=== PATIENT | female | born 1930 | race Caucasian/White ===

== ENCOUNTER → 2016-05-28 | Outpatient (CLI) | payer MEDICARE, OTHER ==
[2016-05-28 15:22] LABS: ABSOLUTE EOSINOPHILS # (AUTO) 0.1 10^3/uL (0.0-0.6); ABSOLUTE LYMPHOCYTES (AUTO) 1.3 10^3/uL (0.5-4.7); ABSOLUTE MONOCYTES (AUTO) 0.7 10^3/uL (0.1-1.4); ABSOLUTE NEUT (AUTO) 4.6 10^3/uL (1.7-8.2); BASOPHILS % (AUTO) 0.7 % (0-2); EOSINOPHILS % (AUTO) 0.8 % (0-6); HEMOGLOBIN 9.6 g/dL (12.0-15.5); HGB HCT DIFFERENCE -0.2; MEAN CORPUSCULAR HGB CONC 33.2 g/dL (32.0-36.0); MEAN CORPUSCULAR VOLUME 87 fl (80-97); MONOCYTES % (AUTO) 9.8 % (3-13); RED BLOOD COUNT 3.32 10^6/uL (3.72-5.28); RED CELL DISTRIBUTION WIDTH 14.9 % (11.5-14.0); SEGMENTED NEUTROPHILS % (AUTO) 68.7 % (42-78); WHITE BLOOD COUNT 6.7 10^3/uL (4.0-10.5)
[2016-05-28 15:43] LABS: ANION GAP 10 (5-19); BLOOD UREA NITROGEN 12 mg/dL (7-20); CALCIUM 9.2 mg/dL (8.4-10.2); CARBON DIOXIDE 27 mmol/L (22-30); CHLORIDE 103 mmol/L (98-107); CREATININE RESULT 0.64 mg/dL (0.52-1.25); GLUCOSE 93 mg/dL (75-110); IRON 21.4 ug/dL (37-170); POTASSIUM 4.7 mmol/L (3.6-5.0); SODIUM 140.4 mmol/L (137-145)
== END ==
LOC: OD 14:35
PROVIDERS: ATTEND Specialist
DX: R10.9 Unspecified abdominal pain (principal); D50.9 Iron deficiency anemia, unspecified
CPT/HCPCS: 36415; 80048; 82607; 82728; 83540; 85025

== ENCOUNTER 2016-06-03 08:21 | Day surgery (SDC) | payer MEDICARE, OTHER ==
[~2016-06-03 08:21] MED LIST: EPINEPHRINE INJ 1 MG/10 ML DISP.SYRIN ONE; FLUMAZENIL INJ 0.5 MG/5 ML VIAL IV ONE; GLYCOPYRROLATE INJ 0.4 MG/2 ML VIAL ONE; NALOXONE HCL INJ/PF 0.4 MG/1 ML SDV ONE; ONDANSETRON HCL INJ/PF 4 MG/2 ML SDV ONE; PROMETHAZINE HCL INJ 25 MG/1 ML VIAL ONE
[2016-06-03] MEDS: MIDAZOLAM 2 MG/2 ML INJ ONE ×2 (09:03→09:07)
[2016-06-03] MEDS: FENTANYL CITRATE INJ/PF 100 MCG/2 ML AMPUL ONE ×2 (09:05→09:09)
[2016-06-03 10:17] LABS: ABSOLUTE MONOCYTES (AUTO) 0.4 10^3/uL (0.1-1.4); ABSOLUTE NEUT (AUTO) 3.5 10^3/uL (1.7-8.2); BASOPHILS % (AUTO) 0.7 % (0-2); EOSINOPHILS % (AUTO) 0.9 % (0-6); HEMATOCRIT 26.3 % (36.0-47.0); HEMOGLOBIN 8.7 g/dL (12.0-15.5); HGB HCT DIFFERENCE -0.2; LYMPHOCYTES % (AUTO) 20.3 % (13-45); MEAN CORPUSCULAR HEMOGLOBIN 28.4 pg (27.0-33.4); MEAN CORPUSCULAR HGB CONC 33.2 g/dL (32.0-36.0); MEAN CORPUSCULAR VOLUME 86 fl (80-97); RED BLOOD COUNT 3.07 10^6/uL (3.72-5.28); RED CELL DISTRIBUTION WIDTH 15.3 % (11.5-14.0); SEGMENTED NEUTROPHILS % (AUTO) 70.1 % (42-78)
[2016-06-03 10:33] VITALS: BP 97/56
--- NOTE | 2016-06-03 10:49 | DISCHARGE SUMMARY E ---
Discharge Summary NAME: KATIE CLEMENTS : 1930 AGE: 85Y ADMITTED: 06/03/2016 DISCHARGED: 06/03/2016 PROCEDURE: EGD, biopsy. HISTORY: The patient is 85, presented with weight loss, abnormal upper GI. Today's upper scope shows gastric ulcer, benign looking, biopsy obtained. DISCHARGE PLAN: Continue Prevacid, soft diet. Awaiting CEA, CBC. Consider followup endoscopy after 4-6 weeks to see if the ulcer healed. DICTATING PHYSICIAN: BARRY LEWIS M.D. [id number] PHY#: [id number] ID: [id number] JOB#: [id number] ACCT: [id number] cc:BARRY LEWIS M.D., ROBERT M.D. >
--- NOTE | 2016-06-03 10:50 | OPERATIVE REPORT E ---
Operative Report NAME: KATIE CLEMENTS : 1930 AGE: 85Y DATE OF SURGERY: 06/03/2016 ROOM: PREOPERATIVE DIAGNOSIS: Gastric ulcer. POSTOPERATIVE DIAGNOSIS: A 1 cm gastric ulcer. PROCEDURES: 1. Esophagoscopy. 2. Gastroscopy. 3. Duodenoscopy. SURGEON: BARRY LEWIS M.D. ANESTHESIA: Versed 4, fentanyl 50. TISSUE REMOVED OR ALTERED: Gastric biopsy. PROCEDURE: After adequate sedation, baby scope passed under guided vision. No difficulties. Esophagoscopy: Junction at 58 cm, mild esophagitis. Gastroscopy: Well-demarcated gastric ulcer 1 cm in size, benign looking to me. Biopsy from surrounding the ulcer was obtained. The ulcer is deep and I was reluctant to biopsy the crater of the ulcer because of the risk of bleeding and perforation. Biopsy of the periphery of the ulcer looks benign. Duodenoscopy: Duodenal bulbs benign, 2-3 mm in size. CONCLUSION: Gastric ulcer, benign looking, awaiting biopsies. PLAN: 1. Continue Prevacid 2. Hold nonsteroidal. 3. Repeat upper endoscopy in 4-6 weeks to make sure the ulcer is healed. 4. Awaiting biopsy. 5. Awaiting CEA. DICTATING PHYSICIAN: BARRY LEWIS M.D. [id number] Y#: [id number] ID: [id number] JOB#: [id number] ACCT: [id number] cc:BARRY LEWIS M.D., ROBERT M.D. >
== END 2016-06-03 10:30 | disposition home or self-care (01) ==
LOC: END 08:21
PROVIDERS: ATTEND Specialist
PROC: 0DB68ZX Excision of Stomach, Via Natural or Artificial Opening Endoscopic, Diagnostic (ICD-10-PCS; principal; 2016-06-03 09:00)
DX: K25.9 Gastric ulcer, unspecified as acute or chronic, without hemorrhage or perforation (principal); K29.50 Unspecified chronic gastritis without bleeding; B96.81 Helicobacter pylori [H. pylori] as the cause of diseases classified elsewhere; R63.4 Abnormal weight loss; R97.0 Elevated carcinoembryonic antigen [CEA]; Z88.0 Allergy status to penicillin
CPT/HCPCS: 43239; 36415; 82378; 85025; 88342 ×2; 88305 ×2; J2250; J3010; J2405; J0171; J2310; J2550; J3490

== ENCOUNTER 2016-11-24 09:33 | Day surgery (SDC) | payer MEDICARE, OTHER ==
[~2016-11-24 09:33] MED LIST changes: -FLUMAZENIL INJ 0.5 MG/5 ML VIAL IV ONE; +FLUMAZENIL INJ 0.5 MG/5 ML VIAL ONE; +MIDAZOLAM 2 MG/2 ML INJ ONE; -PROMETHAZINE HCL INJ 25 MG/1 ML VIAL ONE
[2016-11-24] MEDS: FENTANYL CITRATE INJ/PF 100 MCG/2 ML AMPUL ONE ×2 (09:51→09:53)
[2016-11-24 11:08] VITALS: BP 115/60
[2016-11-24 11:24] LABS: ABSOLUTE LYMPHOCYTES (AUTO) 0.9 10^3/uL (0.5-4.7); ABSOLUTE MONOCYTES (AUTO) 0.5 10^3/uL (0.1-1.4); ABSOLUTE NEUT (AUTO) 4.3 10^3/uL (1.7-8.2); BASOPHILS % (AUTO) 0.4 % (0-2); EOSINOPHILS % (AUTO) 0.6 % (0-6); HEMATOCRIT 31.7 % (36.0-47.0); HEMOGLOBIN 10.3 g/dL (12.0-15.5); HGB HCT DIFFERENCE -0.8; LYMPHOCYTES % (AUTO) 16.4 % (13-45); MEAN CORPUSCULAR HEMOGLOBIN 23.2 pg (27.0-33.4); MEAN CORPUSCULAR HGB CONC 32.3 g/dL (32.0-36.0); MEAN CORPUSCULAR VOLUME 72 fl (80-97); MONOCYTES % (AUTO) 8.2 % (3-13); RED BLOOD COUNT 4.42 10^6/uL (3.72-5.28); RED CELL DISTRIBUTION WIDTH 21.2 % (11.5-14.0); SEGMENTED NEUTROPHILS % (AUTO) 74.4 % (42-78); WHITE BLOOD COUNT 5.7 10^3/uL (4.0-10.5)
[2016-11-24 11:45] LABS: ALANINE AMINOTRANSFERASE 34 U/L (9-52); ALBUMIN 3.8 g/dL (3.5-5.0); ALKALINE PHOSPHATASE 47 U/L (38-126); ANION GAP 7 (5-19); ASPARTATE AMINO TRANSFERASE 34 U/L (14-36); BILIRUBIN,DIRECT 0.2 mg/dL (0.0-0.4); BILIRUBIN,TOTAL 0.3 mg/dL (0.2-1.3); BLOOD UREA NITROGEN 11 mg/dL (7-20); CALCIUM 9.1 mg/dL (8.4-10.2); CARBON DIOXIDE 26 mmol/L (22-30); CHLORIDE 104 mmol/L (98-107); CREATININE RESULT 0.62 mg/dL (0.52-1.25); GLUCOSE 143 mg/dL (75-110); POTASSIUM 4.3 mmol/L (3.6-5.0); SODIUM 136.9 mmol/L (137-145)
[2016-11-24 12:15] LABS: CARCINOEMBRYONIC ANTIGEN 5.7 ng/mL (<3.0)
--- NOTE | 2016-11-24 14:44 | DISCHARGE SUMMARY E ---
Discharge Summary NAME: KATIE CLEMENTS : 1930 AGE: 86Y ADMITTED: 11/24/2016 DISCHARGED: 11/24/2016 HOSPITAL COURSE: The patient is an 86-year-old female with gastric ulcer. Upper endoscopy today shows persistent gastric ulcer. Biopsy obtained and lory esophagitis and benign-looking duodenal small polyps with mild duodenitis. DISCHARGE PLAN: Baseline CBC, CEA, chem profile. Hold aspirin, nonsteroidal. Continue PPI. Consider followup endoscopy 3 months pending biopsy results. DICTATING PHYSICIAN: BARRY LEWIS M.D. [id number] PHY#: [id number] ID: [id number] JOB#: [id number] ACCT: [id number] cc:BARRY LEWIS M.D., ROBERT M.D. >
--- NOTE | 2016-11-24 14:45 | OPERATIVE REPORT E ---
Operative Report NAME: KATIE CLEMENTS : 1930 AGE: 86Y DATE OF SURGERY: 11/24/2016 ROOM: PREOPERATIVE DIAGNOSIS: Gastric ulcer. POSTOPERATIVE DIAGNOSIS: Question lory esophagitis, benign duodenal bulb and duodenitis, persistent gastric ulcer in the antrum. OPERATION: Esophagoscopy, gastroscopy, duodenoscopy. SURGEON: BARRY LEWIS M.D. ANESTHESIA: Versed 2, fentanyl 50. TISSUE REMOVED OR ALTERED: Gastric biopsy for H. pylori, gastric biopsy from the ulcer, esophageal biopsy. PROCEDURE: Baby scope passed under guided vision. No difficulties. Esophagoscopy junction at 40. Distal esophagus shows whitish exudate consistent with candidiasis. Biopsy and brushing obtained. Gastroscopy: Prepyloric gastric ulcer, biopsy obtained. Duodenoscopy: No ulcers, benign duodenal polyps and mild duodenitis. CONCLUSION: Persistent gastric ulcer. Does not look malignant. Awaiting biopsy and baseline CBC. Consider followup upper endoscopy in 3 to 6 months pending biopsy results. DICTATING PHYSICIAN: BARRY LEWIS M.D. [id number] [facility]#: [id number] ID: [id number] JOB#: [id number] ACCT: [id number] cc:BARRY LEWIS M.D., ROBERT M.D. >
== END 2016-11-24 11:30 | disposition home or self-care (01) ==
LOC: END 09:33
PROVIDERS: ATTEND Specialist
PROC: 0DB68ZX Excision of Stomach, Via Natural or Artificial Opening Endoscopic, Diagnostic (ICD-10-PCS; principal; 2016-11-24 10:00)
PROC: 0DB58ZX Excision of Esophagus, Via Natural or Artificial Opening Endoscopic, Diagnostic (ICD-10-PCS; 2016-11-24 10:00)
DX: K25.9 Gastric ulcer, unspecified as acute or chronic, without hemorrhage or perforation (principal); K29.50 Unspecified chronic gastritis without bleeding; K20.9 Esophagitis, unspecified; K29.80 Duodenitis without bleeding; K31.7 Polyp of stomach and duodenum; R97.0 Elevated carcinoembryonic antigen [CEA]; Z79.51 Long term (current) use of inhaled steroids
CPT/HCPCS: 43239; 36415; 87210; 82378; 85025; 80053; 88342 ×2; 88305 ×2; 88312 ×2; J2250; J3010; 43235; J0171; J2310; J2405; J3490

== ENCOUNTER → 2016-12-01 | Outpatient (CLI) | payer MEDICARE, OTHER ==
[2016-12-01 14:21] LABS: ABSOLUTE BASOPHILS # (AUTO) 0.1 10^3/uL (0.0-0.2); ABSOLUTE EOSINOPHILS # (AUTO) 0.1 10^3/uL (0.0-0.6); ABSOLUTE LYMPHOCYTES (AUTO) 1.6 10^3/uL (0.5-4.7); ABSOLUTE MONOCYTES (AUTO) 0.7 10^3/uL (0.1-1.4); BASOPHILS % (AUTO) 0.8 % (0-2); EOSINOPHILS % (AUTO) 0.9 % (0-6); HEMATOCRIT 31.7 % (36.0-47.0); HEMOGLOBIN 10.4 g/dL (12.0-15.5); HGB HCT DIFFERENCE -0.5; LYMPHOCYTES % (AUTO) 21.3 % (13-45); MEAN CORPUSCULAR HEMOGLOBIN 23.4 pg (27.0-33.4); MEAN CORPUSCULAR HGB CONC 32.8 g/dL (32.0-36.0); MEAN CORPUSCULAR VOLUME 71 fl (80-97); MONOCYTES % (AUTO) 9.6 % (3-13); RED BLOOD COUNT 4.45 10^6/uL (3.72-5.28); RED CELL DISTRIBUTION WIDTH 21.2 % (11.5-14.0); SEGMENTED NEUTROPHILS % (AUTO) 67.4 % (42-78); WHITE BLOOD COUNT 7.4 10^3/uL (4.0-10.5)
[2016-12-01 14:45] LABS: IRON 12.3 ug/dL (37-170)
== END ==
LOC: OD 13:39
PROVIDERS: ATTEND Specialist
DX: C25.0 Malignant neoplasm of head of pancreas (principal); D50.9 Iron deficiency anemia, unspecified; R10.9 Unspecified abdominal pain
CPT/HCPCS: 36415; 82607; 83540; 85025; 86301

== ENCOUNTER → 2016-12-11 | Outpatient (CLI) | payer MEDICARE, OTHER ==
--- NOTE | 2016-12-11 15:57 | RADIOLOGY REPORT (SQ) ---
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 Images reviewed with lung, soft tissue and bone windows. Reconstructed coronal and sagittal MPR images reviewed. All images stored on PACS. All CT scanners at this facility use dose modulation, iterative reconstruction, and/or weight based d osing when appropriate to reduce radiation dose to as low as reasonably achievable (ALARA). [facility]: Dose Right [facility]: CareDose [facility]: Dose Right [facility]: Teradose 4D [facility]: [email or web address] CONTRAST TYPE AND DOSE: contrast/concentration: Isovue 370.00 mg/ml; Total Contrast Delivered: 80.0 ml; Total Saline Delivered: 55.0 ml RENAL FUNCTION: Creatinine 0.62 RADIATION DOSE: Up-to-date CT equipment and radiation dose reduction techniques were employed. CTDIv ol: 2.9 mGy. DLP: 114 mGy-cm. . LIMITATIONS: None. FINDINGS: LUNGS AND PLEURA: There is right lung apex pleural-parenchymal scarring, unchanged from 20 16. Minimal scarring is seen in the medial aspect of the right upper lobe and left upper lobe deep to the midbody sternum on axial image 55. This is also similar compared to 2016. No pulmonary nodules worrisome for metastatic disease. No pleural effusion. No pneumothorax. No ac vargas infiltrates. HILAR AND MEDIASTINAL STRUCTURES: No identified masses or abnormal nodes. HEART AND VASCULAR STRUCTURES: No aneurysm or dissection. No central pulmonary emboli. No pericardi al effusion. HARDWARE: None in the chest. UPPER ABDOMEN: 8 mm cyst left lobe liver subdiaphragmatic surface image 52 unchanged from 04/14/2015. Multiples calcified stones are present in the gallbladder without gallbladder wall thickening or lance cholecystic fluid. Entire stomach not included in the field of view. THYROID AND OTHER SOFT TISSUES: No masses. No adenopathy. BONES: No significant finding. OTHER: No other significant finding. IMPRESSION: No CT evidence of metastatic disease to the chest given history of malignant neoplasm of stomach. TECHNICAL DOCUMENTATION: JOB ID: [id number] Quality ID # [id number]: Final reports with documentation of one or more dose reduction techniques (e.g., Au tomated exposure control, adjustment of the mA and/or kV according to patient size, use of iterative reconstruction technique) 2010 [employer]- All Rights Reserved
== END ==
LOC: RAD 12:45
PROVIDERS: ATTEND Surgery
DX: C16.9 Malignant neoplasm of stomach, unspecified (principal)
CPT/HCPCS: 71260

== ENCOUNTER → 2017-02-14 | Outpatient (CLI) | payer MEDICARE, OTHER ==
--- NOTE | 2017-02-15 15:47 | RADIOLOGY REPORT (SQ) ---
EXAM DESCRIPTION: PET CT SKULL/THIGH COMPLETED DATE/TIME: 02/14/2017 9:08 pm REASON FOR STUDY: STOMACH CANCER C16.1 MALIGNANT NEOPLASM OF FUNDUS OF STOMACH COMPARISON: CT chest 12/11/2016 CT angio chest 04/14/2015 RADIONUCLIDE AND DOSE: 10.4 mCi F18 FDG The route of agent administration: Intravenous FASTING BLOOD SUGAR: 90 mg/dl CONTRAST TYPE AND DOSE: No CT contrast given. TECHNIQUE: Blood glucose level was verified. Above dose of FDG was injected intravenously. 2-D seg mented attenuation correction images were obtained from the base of the skull to the midthighs. Nonc ontrast CT images were obtained for attenuation correction and fusion with emission images. CT image s were performed without oral or intravenous contrast and are not sensitive for parenchymal lesions. A series of overlapping emission PET images were obtained. Images reviewed and manipulated at [facility] work station by the radiologist. Images stored on PACS. LIMITATIONS: None. FINDINGS: HEAD AND NECK: No areas of abnormal metabolic activity in the soft tissues of the head and neck. CHEST: No areas of abnormal metabolic activity in the chest. ABDOMEN AND PELVIS: Patient's post subtotal gastrectomy, likely a Billroth 2 procedure on 12/29/2016. There is diffuse metabolic activity along the stomach fundus with SUV of 3.8. This nonspecific. PROXIMAL LOWER EXTREMITIES: No areas of abnormal metabolic activity in the soft tissues of the lower extremities. BONES: No abnormal metabolic activity in the visualized skeleton. ADDITIONAL CT FINDINGS: Stones in the gallbladder without CT signs of acute cholecystitis. Small lef t pleural effusion, non metabolic. Left lower lobe collapse. OTHER: Liver background activity 1.6 SUV. Blood pool background activity 1.6 SUV. IMPRESSION: Minimal gastric fundus activity, nonspecific. No PET-CT evidence of widespread metastatic disease given history of gastric adenocarcinoma TECHNICAL DOCUMENTATION: JOB ID: [id number] [employer]- All Rights Reserved
== END ==
LOC: RAD 15:44
PROVIDERS: ATTEND Internal Medicine
DX: C16.1 Malignant neoplasm of fundus of stomach (principal)
CPT/HCPCS: 78815; A9552

== ENCOUNTER 2017-02-17 10:07 | Outpatient (CLI) | payer MEDICARE, OTHER ==
[~2017-02-17 10:07] MED LIST changes: -EPINEPHRINE INJ 1 MG/10 ML DISP.SYRIN ONE; +FERUMOXYTOL (NON-ESRD) 510 MG/NS 100 ML IV PRN; -FLUMAZENIL INJ 0.5 MG/5 ML VIAL ONE; -GLYCOPYRROLATE INJ 0.4 MG/2 ML VIAL ONE; -MIDAZOLAM 2 MG/2 ML INJ ONE; -NALOXONE HCL INJ/PF 0.4 MG/1 ML SDV ONE; +NORMAL SALINE 250 ML IV PRN; -ONDANSETRON HCL INJ/PF 4 MG/2 ML SDV ONE
[2017-02-17 10:29] VITALS: BP 106/59
== END 2017-02-17 11:25 | disposition home or self-care (01) ==
LOC: II 10:07 → 5TH 10:22 → II 11:25
PROVIDERS: ATTEND Internal Medicine
PROC: 3E033GC Introduction of Other Therapeutic Substance into Peripheral Vein, Percutaneous Approach (ICD-10-PCS; principal; 2017-02-17)
DX: C16.1 Malignant neoplasm of fundus of stomach (principal); N18.2 Chronic kidney disease, stage 2 (mild)
CPT/HCPCS: 96365; Q0138

== ENCOUNTER 2017-02-24 09:37 | Outpatient (CLI) | payer MEDICARE, OTHER ==
[2017-02-24 10:00] VITALS: BP 104/61
== END 2017-02-24 10:44 | disposition home or self-care (01) ==
LOC: II 09:37 → 5TH 09:38 → II 10:44
PROVIDERS: ATTEND Internal Medicine
PROC: 3E033GC Introduction of Other Therapeutic Substance into Peripheral Vein, Percutaneous Approach (ICD-10-PCS; principal; 2017-02-24)
DX: C16.1 Malignant neoplasm of fundus of stomach (principal); N18.2 Chronic kidney disease, stage 2 (mild)
CPT/HCPCS: 96365; Q0138

== ENCOUNTER 2017-02-28 12:36 | Emergency (ER) | payer MEDICARE, OTHER ==
[2017-02-28] MEDS ORDERED: NORMAL SALINE 1000 ML 1,000 ML IV ONE (13:35)
--- NOTE | 2017-02-28 13:42 | ER Document Report ---
ED Medical Screen (RME) - General Chief Complaint: Weakness Stated Complaint: WEAKNESS Time Seen by Provider: 02/28/17 13:29 Mode of Arrival: Wheelchair Information source: Patient Notes: 86-year-old female history of stomach cancer who had surgical removal of the majority of her stomach a month ago presents with mom month duration of intermittent weakness. Patient notes she has not been eating well. Denies any fevers or chills. Patient has been having intermittent diarrhea. Patient is also had a productive cough I have greeted and performed a rapid initial assessment of this patient. A comprehensive ED assessment and evaluation of the patient, analysis of test results and completion of the medical decision making process will be conducted by additional ED providers. PHYSICAL EXAMINATION: GENERAL: Well-appearing, well-nourished and in no acute distress. HEAD: Atraumatic, normocephalic. EYES: Pupils equal round extraocular movements intact, conjunctiva are normal. ENT: Nares patent NECK: Normal range of motion LUNGS: No respiratory distress Musculoskeletal: Normal range of motion NEUROLOGICAL: Normal speech, normal gait. PSYCH: Normal mood, normal affect. SKIN: Warm, Dry, normal turgor, no rashes or lesions noted. TRAVEL OUTSIDE OF THE [place] IN LAST 30 DAYS: No - Related Data Allergies/Adverse Reactions: amoxicillin [Amoxicillin] Allergy (Mild, Verified 01/10/17 09:40) rash, itching Past Medical History - Social History Chew tobacco use (# tins/day): No Frequency of alcohol use: None Drug Abuse: None - Past Medical History Cardiac Medical History: Denies: Hx Coronary Artery Disease, Hx DVT, Hx Heart Attack, Hx Hypertension , Hx Pulmonary Embolism Pulmonary Medical History: Reports: Hx Asthma, Hx Bronchitis, Hx COPD, Hx Pneumonia Neurological Medical History: Denies: Hx Cerebrovascular Accident, Hx Seizures Renal/ Medical History: Denies: Hx Peritoneal Dialysis Musculoskeltal Medical History: Reports Hx Arthritis Psychiatric Medical History: Denies: Hx Depression Past Surgical History: Denies: Hx Hysterectomy, Hx Pacemaker - Immunizations Hx Diphtheria, Pertussis, Tetanus Vaccination: Yes Physical Exam - Vital signs Vitals: Temp Pulse Resp BP Pulse Ox 98.2 F 94 18 118/59 L 99 02/28/17 12:42 02/28/17 12:42 02/28/17 12:42 02/28/17 12:42 02/28/17 12:42 Course - Vital Signs Vital signs: Temp Pulse Resp BP Pulse Ox 98.2 F 94 18 118/59 L 99 02/28/17 12:42 02/28/17 12:42 02/28/17 12:42 02/28/17 12:42 02/28/17 12:42
[2017-02-28 14:23] LABS: APPEARANCE,URINE CLEAR; BILIRUBIN,URINE NEGATIVE (NEGATIVE); GLUCOSE, URINE NEGATIVE (NEGATIVE); KETONES,URINE NEGATIVE (NEGATIVE); LEUKOCYTE ESTERASE,URINE NEGATIVE (NEGATIVE); NITRITE,URINE NEGATIVE (NEGATIVE); PROTEIN,URINE NEGATIVE (NEGATIVE); URINE SPECIFIC GRAVITY 1.005; UROBILINOGEN,URINE NEGATIVE mg/dL (<2.0)
[2017-02-28 14:38] LABS: ABSOLUTE LYMPHOCYTES (AUTO) 0.7 10^3/uL (0.5-4.7); ABSOLUTE MONOCYTES (AUTO) 1.4 10^3/uL (0.1-1.4); ABSOLUTE NEUT (AUTO) 7.6 10^3/uL (1.7-8.2); BASOPHILS % (AUTO) 0.2 % (0-2); EOSINOPHILS % (AUTO) 0.2 % (0-6); HEMATOCRIT 30.5 % (36.0-47.0); HEMOGLOBIN 9.7 g/dL (12.0-15.5); HGB HCT DIFFERENCE -1.4; LYMPHOCYTES % (AUTO) 7.5 % (13-45); MEAN CORPUSCULAR HEMOGLOBIN 23.6 pg (27.0-33.4); MEAN CORPUSCULAR HGB CONC 31.8 g/dL (32.0-36.0); MEAN CORPUSCULAR VOLUME 74 fl (80-97); MONOCYTES % (AUTO) 14.2 % (3-13); RED BLOOD COUNT 4.11 10^6/uL (3.72-5.28); RED CELL DISTRIBUTION WIDTH 24.6 % (11.5-14.0); SEGMENTED NEUTROPHILS % (AUTO) 77.9 % (42-78); WHITE BLOOD COUNT 9.8 10^3/uL (4.0-10.5)
--- NOTE | 2017-02-28 14:50 | RADIOLOGY REPORT (SQ) ---
EXAM DESCRIPTION: CHEST PA/LAT COMPLETED DATE/TIME: 02/28/2017 2:43 pm REASON FOR STUDY: cough congestion COMPARISON: PET-CT FROM 02/14/2017 EXAM PARAMETERS: NUMBER OF VIEWS: two views TECHNIQUE: Digital Frontal and Lateral radiographic views of the chest acquired. RADIATION DOSE: NA LIMITATIONS: none FINDINGS: LUNGS AND PLEURA: Stable chronic left pleural effusion with atelectasis. Lungs and pleura l spaces otherwise clear. MEDIASTINUM AND HILAR STRUCTURES: No masses or contour abnormalities. HEART AND VASCULAR STRUCTURES: Heart normal size. No evidence for failure. BONES: No acute findings. HARDWARE: None in the chest. OTHER: No other significant finding. IMPRESSION: NO ACUTE CARDIOPULMONARY PROCESS. NO SIGNIFICANT CHANGE FROM PRIOR STUDY. TECHNICAL DOCUMENTATION: JOB ID: [id number] [employer]- All Rights Reserved
[2017-02-28 14:55] LABS: ALANINE AMINOTRANSFERASE 20 U/L (9-52); ALBUMIN 3.2 g/dL (3.5-5.0); ALKALINE PHOSPHATASE 78 U/L (38-126); ANION GAP 7 (5-19); ASPARTATE AMINO TRANSFERASE 20 U/L (14-36); BILIRUBIN,DIRECT 0.3 mg/dL (0.0-0.4); BILIRUBIN,TOTAL 0.4 mg/dL (0.2-1.3); BLOOD UREA NITROGEN 10 mg/dL (7-20); CALCIUM 8.6 mg/dL (8.4-10.2); CARBON DIOXIDE 28 mmol/L (22-30); CHLORIDE 99 mmol/L (98-107); CREATININE RESULT 0.46 mg/dL (0.52-1.25); GLUCOSE 93 mg/dL (75-110); POTASSIUM 3.7 mmol/L (3.6-5.0); SODIUM 134.2 mmol/L (137-145); TOTAL PROTEIN 5.9 g/dL (6.3-8.2)
[2017-02-28 15:03] LABS: ANISOCYTOSIS 2+; HYPOCHROMASIA 1+; MICROCYTOSIS 1+; OVALOCYTES SLIGHT; POIKILOCYTOSIS 1+
[2017-02-28 15:05] LABS: BURR CELLS SLIGHT; SCHISTOCYTES SLIGHT
[2017-02-28] MEDS ORDERED: IPRATROPIUM/ALBUTEROL 0.5-2.5 MG/3 ML AMPUL NEB ONE (15:40)
--- NOTE | 2017-02-28 16:18 | ER Document Report ---
ED General - General Chief Complaint: Weakness Stated Complaint: WEAKNESS Time Seen by Provider: 02/28/17 13:29 Mode of Arrival: Wheelchair TRAVEL OUTSIDE OF THE [place] IN LAST 30 DAYS: No - HPI Patient complains to provider of: Generalized weakness Notes: Patient coming in for generalized weakness. Patient has a recent history of having gastrectomy most of her stomach being removed due to cancer. Patient is currently being followed by Dr. Hills patient states also eating less. States fatigue chronic diarrhea ever since his surgery. Patient states she normally only has 1 loose drink along with some fruits and vegetables throughout the day. Patient upon my evaluation resting comfortably. Vital signs look to be stable. Patient able to move all 4 extremities. Patient denies any recent sick contacts denies any travel. Denies any recent antibiotics. - Related Data Allergies/Adverse Reactions: amoxicillin [Amoxicillin] Allergy (Mild, Verified 01/10/17 09:40) rash, itching Past Medical History - General Information source: Patient - Social History Smoking Status: Former Smoker Chew tobacco use (# tins/day): No Frequency of alcohol use: None Drug Abuse: None Family History: Other - FATHER FROM [place] Patient has suicidal ideation: No Patient has homicidal ideation: No - Past Medical History Cardiac Medical History: Denies: Hx Coronary Artery Disease, Hx DVT, Hx Heart Attack, Hx Hypertension , Hx Pulmonary Embolism Pulmonary Medical History: Reports: Hx Asthma, Hx Bronchitis, Hx COPD, Hx Pneumonia Neurological Medical History: Denies: Hx Cerebrovascular Accident, Hx Seizures Renal/ Medical History: Denies: Hx Peritoneal Dialysis Musculoskeltal Medical History: Reports Hx Arthritis Psychiatric Medical History: Denies: Hx Depression Past Surgical History: Denies: Hx Hysterectomy, Hx Pacemaker - Immunizations Hx Diphtheria, Pertussis, Tetanus Vaccination: Yes Hx Pneumococcal Vaccination: 04/08/15 Review of Systems - Review of Systems Constitutional: Weakness EENT: No symptoms reported Cardiovascular: No symptoms reported Respiratory: No symptoms reported Gastrointestinal: No symptoms reported Genitourinary: No symptoms reported Female Genitourinary: No symptoms reported Musculoskeletal: No symptoms reported Skin: No symptoms reported Hematologic/Lymphatic: No symptoms reported Neurological/Psychological: No symptoms reported Physical Exam - Vital signs Vitals: Temp Pulse Resp BP Pulse Ox 98.2 F 94 18 118/59 L 99 02/28/17 12:42 02/28/17 12:42 02/28/17 12:42 02/28/17 12:42 02/28/17 12:42 Interpretation: Normal - General General appearance: Appears well, Alert - HEENT Head: Normocephalic, Atraumatic Eyes: Normal Pupils: PERRL - Respiratory Respiratory status: No respiratory distress Chest status: Nontender Breath sounds: Normal Chest palpation: Normal - Cardiovascular Rhythm: Regular Heart sounds: Normal auscultation Murmur: No - Abdominal Inspection: Normal Distension: No distension Bowel sounds: Normal Tenderness: Nontender Organomegaly: No organomegaly - Back Back: Normal, Nontender - Extremities General upper extremity: Normal inspection, Nontender, Normal color, Normal ROM , Normal temperature General lower extremity: Normal inspection, Nontender, Normal color, Normal ROM , Normal temperature, Normal weight bearing. No: Sebas's sign - Neurological Neuro grossly intact: Yes Cognition: Normal Orientation: AAOx4 Deondre Coma Scale Eye Opening: Spontaneous Deondre Coma Scale Verbal: Oriented Deondre Coma Scale Motor: Obeys Commands Deondre Coma Scale Total: 15 Speech: Normal Motor strength normal: LUE, RUE, LLE, RLE Sensory: Normal - Psychological Associated symptoms: Normal affect, Normal mood - Skin Skin Temperature: Warm Skin Moisture: Dry Skin Color: Normal Course - Re-evaluation Re-evalutation: 02/28/17 19:13 Patient's albumin and total protein has decreased since last laboratory studies performed here. Concern was weakness is due to recent surgery and malnutrition encouraged patient to increase her intake of Ensure or boost drinks. Also recommended home physical therapy. We will have our social work involved to relay the message to the [facility]. Patient otherwise has no signs of acute pathology causing her weakness will discharge patient home - Vital Signs Vital signs: Temp Pulse Resp BP Pulse Ox 98.5 F 96 19 112/89 H 100 02/28/17 16:35 02/28/17 16:35 02/28/17 16:35 02/28/17 16:35 02/28/17 16:35 - Laboratory Result Diagrams: 02/28/17 14:08 02/28/17 14:08 Laboratory results interpreted by me: 02/28/17 02/28/17 02/28/17 14:08 14:08 14:08 Hgb 9.7 L Hct 30.5 L MCV 74 L MCH 23.6 L MCHC 31.8 L RDW 24.6 H Lymphocytes % 7.5 L Monocytes % 14.2 H Sodium 134.2 L Creatinine 0.46 L Magnesium 2.4 H Total Protein 5.9 L Albumin 3.2 L Discharge - Discharge Clinical Impression: Generalized weakness, Wheezing Condition: Good Disposition: HOME, SELF-CARE Instructions: Weakness (ON LICENSE OF [facility]) Additional Instructions: Evaluation does not show any signs of infection or significant underlying imbalance causing weakness. Examination does reveal some slight wheezing. Would recommend using your nebulizers at home the albuterol 4 times a day. Your total protein and albumin are on the lower side. I will be concerned about the beginning of malnutrition. I would recommend Ensure or boost drinks at least 3 a day. Also would recommend evaluation for possible physical therapy either at home facility. I will have our social insurance adviser contact your doctor Dr. Hills to inquire about physical therapy. Return to ER symptoms worsen. Take medication as prescribed. Referrals: JENN WARREN MD [Primary Care Provider] - Follow up as needed
[2017-02-28 16:37] VITALS: BP 112/89
== END 2017-02-28 16:36 | disposition home or self-care (01) ==
LOC: ER 12:36
DX: R53.1 Weakness (principal); R06.2 Wheezing; J44.9 Chronic obstructive pulmonary disease, unspecified; Z88.0 Allergy status to penicillin; Z87.891 Personal history of nicotine dependence; Z90.3 Acquired absence of stomach [part of]; Z85.028 Personal history of other malignant neoplasm of stomach
CPT/HCPCS: 94640; 99285; 96360; 36415; 83735; 85025; 80053; 81001; 71020; J7030; A9270; J7620

== ENCOUNTER → 2018-03-22 | Outpatient (CLI) | payer MEDICARE, OTHER ==
--- NOTE | 2018-03-23 09:03 | RADIOLOGY REPORT (SQ) ---
EXAM DESCRIPTION: PET CT SKULL/THIGH COMPLETED DATE/TIME: 03/22/2018 10:03 pm REASON FOR STUDY: C16.1 MALIGNANT NEOPLASM OF FUNDUS OF STOMACH C16.1 MALIGNANT NEOPLASM OF FUNDUS OF STOMACH COMPARISON: None. RADIONUCLIDE AND DOSE: 10 mCi F18 FDG The route of agent administration: Intravenous FASTING BLOOD SUGAR: 72 mg/dl CONTRAST TYPE AND DOSE: No CT contrast given. TECHNIQUE: Blood glucose level was verified. Above dose of FDG was injected intravenously. 2-D seg mented attenuation correction images were obtained from the base of the skull to the midthighs. Nonc ontrast CT images were obtained for attenuation correction and fusion with emission images. CT image s were performed without oral or intravenous contrast and are not sensitive for parenchymal lesions. A series of overlapping emission PET images were obtained. Images reviewed and manipulated at [facility] [employer] work station by the radiologist. Images stored on PACS. LIMITATIONS: None. FINDINGS: HEAD AND NECK: No areas of abnormal metabolic activity in the soft tissues of the head and neck. CHEST: No areas of abnormal metabolic activity in the chest. ABDOMEN AND PELVIS: Previous gastric surgery. No areas of abnormal metabolic activity in the abdomen or pelvis. Expected physiologic activity is present in the genitourinary system and bowel. PROXIMAL LOWER EXTREMITIES: No areas of abnormal metabolic activity in the soft tissues of the lower extremities. BONES: No abnormal metabolic activity in the visualized skeleton. ADDITIONAL CT FINDINGS: Multiple gallstones. Renal calculi. Prominence of the collecting system of the left kidney. There is a possible left ovarian cyst with calcification. Limited evaluation on th e current noncontrast CT. No additional significant findings on the noncontrast CT images. OTHER: No other significant findings. Background blood pool activity mean SUV 1.37. Background live r activity mean SUV 1.58. IMPRESSION: 1. UNREMARKABLE PET-CT. NO AREAS OF ABNORMAL METABOLIC ACTIVITY. 2. GALLSTONES. 3. RENAL CALCULI. THERE IS PROMINENCE OF THE COLLECTING SYSTEM OF THE LEFT KIDNEY. THIS COULD INDIC ATE HYDRONEPHROSIS SECONDARY TO A URETERAL CALCULUS OR OTHER DISTAL OBSTRUCTION, ALTHOUGH NOT WELL SUALIZED ON THE CURRENT NONCONTRAST CT SCAN. THERE IS ALSO A POSSIBLE LEFT OVARIAN CYST WITH CALCIFI CATION. WOULD RECOMMEND ROUTINE CT OF THE ABDOMEN AND PELVIS WITH AND WITHOUT CONTRAST TO EVALUATE T HESE FINDINGS. TECHNICAL DOCUMENTATION: JOB ID: [id number]- All Rights Reserved Reading location - IP/workstation name: [email or web address]
== END ==
LOC: RAD 18:13
PROVIDERS: ATTEND Internal Medicine
DX: C16.1 Malignant neoplasm of fundus of stomach (principal)
CPT/HCPCS: 78815; A9552

== ENCOUNTER → 2018-09-07 | Outpatient (CLI) | payer MEDICARE, OTHER ==
--- NOTE | 2018-09-07 14:33 | RADIOLOGY REPORT (SQ) ---
EXAM DESCRIPTION: CHEST 2 VIEWS COMPLETED DATE/TIME: 09/07/2018 2:20 pm REASON FOR STUDY: SOB (R06.02) COMPARISON: 02/28/2017 EXAM PARAMETERS: NUMBER OF VIEWS: two views TECHNIQUE: Digital Frontal and Lateral radiographic views of the chest acquired. RADIATION DOSE: NA LIMITATIONS: none FINDINGS: LUNGS AND PLEURA: There is hyperexpansion of the lungs. There is no infiltrate, effusion, or mass. MEDIASTINUM AND HILAR STRUCTURES: No masses or contour abnormalities. HEART AND VASCULAR STRUCTURES: Heart normal size. No evidence for failure. BONES: No acute findings. HARDWARE: None in the chest. OTHER: No other significant finding. IMPRESSION: Chronic lung changes with no acute cardiopulmonary findings. TECHNICAL DOCUMENTATION: JOB ID: [id number] [employer]- All Rights Reserved Reading location - IP/workstation name: [email or web address]
== END ==
LOC: RAD 13:55
PROVIDERS: ATTEND Internal Medicine
DX: R06.02 Shortness of breath (principal)
CPT/HCPCS: 71046